=== PATIENT | male | born 1980 | race Caucasian/White ===

== ENCOUNTER → 2017-05-05 | Outpatient (CLI) | payer OTHER ==
[~2017-05-05] MED LIST: ASPIR-LOW81 M1 PO; ASPIRIN325 MG PO; CLINDAMYCIN HC300 MG PO; DIAZEPAM10 MG PO; FIORICET WI1 CAPSULE PO; GEODON40 MG PO; HYDROCHLOROTHIA25 MG PO; LEVAQUIN750 MG PO; METHADONE10 MG PO; NICOTINE PATCH1 EAC2 TD; OXYCODONE HCL10 MG PO; PERCOCET 10/1 TABLET PO; PERCOCET 5/31 TABLET PO; PERCOCET 7.51 TABLET PO; PHENTERMINE H37.5 MG PO; PREDNISONE10 MG PO; PROMETHAZINE HC25 M1 PO; PROVENTIL,2.5 MG/0.5 AEROSOL; RANITIDINE HCL150 M1 PO; VENTOLIN HFA18 GM IH; XANAX0.5 MG; XANAX0.5 MG PO; ZOCOR10 MG PO; ZOFRAN4 MG PO; ZYRTEC10 MG PO; [UNRECOGNIZED DRUG - OTHER] PO
== END | disposition home or self-care (01) ==
LOC: CDC 11:38
DX: R94.31 Abnormal electrocardiogram [ECG] [EKG] (principal); Z79.891 Long term (current) use of opiate analgesic
CPT/HCPCS: 93000

== ENCOUNTER 2017-10-25 20:23 | Emergency (ER) | payer OTHER ==
[~2017-10-25] VITALS: Ht 200.7 cm; Wt 271.4 kg
[2017-10-25 20:37] VITALS: BP 181/94
[2017-10-25 21:07] LABS: HEMATOCRIT 39.5 % (38.0-50.0); HEMOGLOBIN 12.8 G/DL (12.5-16.6); MCH 29.1 PG (29.0-34.0); MCHC 32.4 G/DL (30.0-36.0); MCV 89.8 FL (86-99); PLATELET COUNT 120 K/uL (156-360); RBC DIS.WIDTH-CV 14.2 % (11.8-14.6); RBC DIS.WIDTH-SD 46.4 % (39-53); WHITE BLOOD COUNT 6.5 K/uL (4.1-10.2)
[2017-10-25 21:16] LABS: CHLORIDE 98 mEq/L (99-109); SODIUM 137 mEq/L (136-147)
[2017-10-25 21:18] LABS: GLUCOSE 191 mg/dL (70-99)
[2017-10-25 21:22] LABS: CREATININE 0.9 mg/dL (0.6-1.3); GFR ESTIMATE (CALCULATED) > 59 mL/min/ (58.99-99999); UREA NITROGEN (BUN) 12 mg/dL (9-23)
[2017-10-26] MEDS ORDERED: KEFLEX500 MG PO ×2 (00:14→00:45)
[2017-10-26] MEDS ORDERED: NORCO 5/3251 TABLET PO (00:14)
== END 2017-10-26 00:57 | disposition home or self-care (01) ==
LOC: EME 20:23
DX: L03.116 Cellulitis of left lower limb (principal); I10 Essential (primary) hypertension; E11.9 Type 2 diabetes mellitus without complications; J45.909 Unspecified asthma, uncomplicated; K21.9 Gastro-esophageal reflux disease without esophagitis; G89.29 Other chronic pain; M54.9 Dorsalgia, unspecified; G47.30 Sleep apnea, unspecified; E66.9 Obesity, unspecified; Z68.44 Body mass index [BMI] 60.0-69.9, adult; F41.9 Anxiety disorder, unspecified; F32.9 Major depressive disorder, single episode, unspecified; Z87.891 Personal history of nicotine dependence; Z79.82 Long term (current) use of aspirin; Z79.891 Long term (current) use of opiate analgesic; Z88.8 Allergy status to other drugs, medicaments and biological substances
CPT/HCPCS: 80048; 83605; 85027; 87040; 93971; 99281; 99284; J0696